=== PATIENT | female | born 1930 | race African-American/Black ===

== ENCOUNTER 2019-06-01 08:27 | Inpatient (IN) | payer MEDICARE, MEDICAID ==
[~2019-06-01] VITALS: Ht 162.6 cm; Wt 63.5 kg
[2019-06-01] MEDS ORDERED: SODIUM CHLORIDE 0.9% 1,000 ML IV ONE (09:13)
[2019-06-01 10:53] LABS: BASOPHILS % 0.6 % (0.0-2.0); EOSINOPHILS % 1.8 % (0.0-5.0); HEMATOCRIT. 36.7 % (36.0-48.0); HEMOGLOBIN. 12.5 g/dL (12.0-16.0); LYMPHOCYTES % 17.9 % (20.0-50.0); MEAN CORPUSCULAR HEMOGLOBIN 29.5 pg (28.0-32.0); MEAN CORPUSCULAR VOLUME 86.6 fL (81.0-99.0); MONOCYTES % 13.8 % (2.0-8.0); NEUTROPHILS % 65.9 % (40.0-76.0); PLATELET 371 x1000/uL (130-400); RED BLOOD CELL COUNT 4.24 mill/uL (4.2-5.4); RED CELL DISTRIBUTION WIDTH 14.6 % (11.6-14.6)
[2019-06-01 10:59] LABS: CHLORIDE 99 mEq/L (98-107)
[2019-06-01 11:01] LABS: PARTIAL THROMBOPLASTIN TIME 28.9 sec (23.4-31.0); PROTHROMBIN TIME 10.7 sec (9.6-11.0)
[2019-06-01] MEDS ORDERED: ASPIRIN 325MG EC TABLET PO ONE (11:15)
[2019-06-01] MEDS ORDERED: CEFTRIAXONE 1 G PREMIX 50 ML IV ONE (12:15)
[2019-06-01] MEDS ORDERED: ASPIRIN 300MG SUPP PR ONE (12:15)
[2019-06-01 12:46] LABS: CLARITY URINE TURBID (CLEAR); KETONES URINE 1+ (NEGATIVE); LEUKOCYTE ESTERASE URINE 2+ (NEGATIVE); NITRITE URINE POSITIVE (NEGATIVE); OCCULT BLOOD URINE 3+ (NEGATIVE); PROTEIN URINE 2+ (NEGATIVE); SPECIFIC GRAVITY URINE 1.018 (1.005-1.030)
[2019-06-01 12:56] LABS: COLOR URINE BROWN (YELLOW)
[2019-06-01] MEDS ORDERED: DEXTROSE 50% WATER 50ML SYRINGE IV PRN (15:00)
[2019-06-01] MEDS ORDERED: CLONIDINE 0.1MG TABLET PO PRN (15:00)
[2019-06-01 15:33] VITALS: BP 130/56
[2019-06-01 16:00] VITALS: BP 130/56
[2019-06-01] MEDS: APIXABAN 5 MG TABLET PO SCH ×2 (17:00→18:35)
[2019-06-01] MEDS: INSULIN LISPRO 100 UNITS/ML SUBCUT SCH ×2 (17:15→21:00)
[2019-06-01] MEDS: BLOOD SUGAR DIAGNOSTIC STRIP TEST SCH ×2 (17:33→21:07)
[2019-06-01 19:23] LABS: HEPATITIS B SURFACE ANTIGEN NEGATIVE
[2019-06-01 19:52] LABS: HEPATITIS A AB IGM NEGATIVE (NEGATIVE)
[2019-06-01 20:00] VITALS: BP 131/65
[2019-06-01] MEDS ORDERED: HALOPERIDOL LACTATE 5MG/ML VIAL IM PRN (21:10)
[2019-06-01] MEDS: FAMOTIDINE 20MG TABLET PO SCH (21:15)
[2019-06-01] MEDS ORDERED: ACETAMINOPHEN 650MG SUPP PR PRN (22:30)
[2019-06-01] MEDS ORDERED: NON FORMULARY PATIENT HOME MED XX SCH (22:30)
[2019-06-01] MEDS ORDERED: LORAZEPAM 2MG/ML CPJ IV SCH ×2 (22:30→23:45)
[2019-06-02] VITALS: BP 169/93
[2019-06-02] MEDS ORDERED: DEXT 5%/0.45% NACL KCL 20MEQ/L 1,000 ML IV SCH (01:00)
[2019-06-02] MEDS: HALOPERIDOL LACTATE 5MG/ML VIAL IM PRN ×2 (02:01→11:44)
[2019-06-02 04:00] VITALS: BP 130/85
[2019-06-02] MEDS: BLOOD SUGAR DIAGNOSTIC STRIP TEST SCH ×4 (06:51→21:53)
[2019-06-02] MEDS: INSULIN LISPRO 100 UNITS/ML SUBCUT SCH ×4 (07:01→20:47)
[2019-06-02 07:16] LABS: CHLORIDE 99 mEq/L (98-107)
[2019-06-02 07:20] LABS: BASOPHILS % 0.6 % (0.0-2.0); EOSINOPHILS % 0.2 % (0.0-5.0); HEMATOCRIT. 35.9 % (36.0-48.0); HEMOGLOBIN. 12.2 g/dL (12.0-16.0); LYMPHOCYTES % 8.9 % (20.0-50.0); MEAN CORPUSCULAR HEMOGLOBIN 29.7 pg (28.0-32.0); MEAN PLATELET VOLUME 7.7 fl (7.4-10.4); MONOCYTES % 11.3 % (2.0-8.0); PLATELET 416 x1000/uL (130-400); RED BLOOD CELL COUNT 4.12 mill/uL (4.2-5.4); RED CELL DISTRIBUTION WIDTH 14.9 % (11.6-14.6)
[2019-06-02 08:00] VITALS: BP 103/82
[2019-06-02] MEDS: APIXABAN 5 MG TABLET PO SCH (09:05)
[2019-06-02 12:00] VITALS: BP 115/99
[2019-06-02] MEDS: POTASSIUM BICARB/CIT ACID 25 MEQ TABLET.EFF PO SCH (15:55)
[2019-06-02] MEDS: SODIUM CHLORIDE 0.9% 1,000 ML IV SCH (15:55)
[2019-06-02 16:00] VITALS: BP 126/90
[2019-06-02 20:00] VITALS: BP 148/94
[2019-06-02] MEDS: FAMOTIDINE 20MG TABLET PO SCH (20:46)
[2019-06-02] MEDS: QUETIAPINE FUMARATE 25MG TABLET PO SCH (20:46)
[2019-06-03] VITALS: BP 154/80
[2019-06-03 04:00] VITALS: BP 121/65
[2019-06-03] MEDS: INSULIN LISPRO 100 UNITS/ML SUBCUT SCH ×4 (06:24→21:55)
[2019-06-03] MEDS: BLOOD SUGAR DIAGNOSTIC STRIP TEST SCH ×4 (06:25→21:14)
[2019-06-03 07:04] LABS: HEMATOCRIT. 32.4 % (36.0-48.0); HEMOGLOBIN. 10.9 g/dL (12.0-16.0); MEAN CORPUSCULAR VOLUME 86.1 fL (81.0-99.0); MEAN PLATELET VOLUME 7.4 fl (7.4-10.4); PLATELET 409 x1000/uL (130-400); RED BLOOD CELL COUNT 3.76 mill/uL (4.2-5.4); RED CELL DISTRIBUTION WIDTH 14.7 % (11.6-14.6)
[2019-06-03 07:10] LABS: CHLORIDE 105 mEq/L (98-107)
[2019-06-03 08:00] VITALS: BP_SYST 113; BP_SYST 116; BP_DIAS 66; BP_DIAS 67
[2019-06-03] MEDS: POTASSIUM BICARB/CIT ACID 25 MEQ TABLET.EFF PO SCH (08:26)
[2019-06-03] MEDS: QUETIAPINE FUMARATE 25MG TABLET PO SCH ×2 (08:26→21:54)
[2019-06-03] MEDS: SODIUM CHLORIDE 0.9% 1,000 ML IV SCH (08:27)
[2019-06-03 11:57] LABS: PLATELET ESTIMATE SLIGHTLY INCREASED
[2019-06-03] MEDS ORDERED: POTASSIUM CHLORIDE 20MEQ TABLET SR PO NR (13:45)
[2019-06-03] MEDS ORDERED: DEXTROSE 50% WATER 50ML SYRINGE IV PRN (14:00)
[2019-06-03] MEDS: FLUCONAZOLE 100MG TABLET PO SCH (14:48)
[2019-06-03 16:00] VITALS: BP 119/67
[2019-06-03] MEDS: AMOXICILLIN 250MG CAPSULE PO SCH ×2 (16:21→21:54)
[2019-06-03] MEDS: METFORMIN HCL 500MG TABLET PO SCH (16:21)
[2019-06-03] MEDS ORDERED: INSNPH SUBCUT (16:25)
[2019-06-03] MEDS ORDERED: METF-414 PO (16:25)
[2019-06-03] MEDS ORDERED: ACET-2081 PO (16:25)
[2019-06-03] MEDS ORDERED: GLIP5TAB12 PO (16:25)
[2019-06-03] MEDS ORDERED: ALEN70TA3 PO (16:25)
[2019-06-03] MEDS ORDERED: NAPH1POW3 PO (16:25)
[2019-06-03 20:00] VITALS: BP 134/65
[2019-06-03] MEDS: FAMOTIDINE 20MG TABLET PO SCH (21:54)
[2019-06-04] VITALS: BP 111/65
[2019-06-04 04:00] VITALS: BP 116/60
[2019-06-04] MEDS: BLOOD SUGAR DIAGNOSTIC STRIP TEST SCH ×4 (05:57→21:00)
[2019-06-04] MEDS: AMOXICILLIN 250MG CAPSULE PO SCH ×3 (05:57→22:21)
[2019-06-04] MEDS: METFORMIN HCL 500MG TABLET PO SCH ×2 (05:57→17:41)
[2019-06-04] MEDS: INSULIN LISPRO 100 UNITS/ML SUBCUT SCH ×4 (05:58→22:23)
[2019-06-04 08:00] VITALS: BP 110/59
[2019-06-04 08:07] LABS: CHLORIDE 108 mEq/L (98-107)
[2019-06-04] MEDS: POTASSIUM BICARB/CIT ACID 25 MEQ TABLET.EFF PO SCH (08:56)
[2019-06-04] MEDS: QUETIAPINE FUMARATE 25MG TABLET PO SCH ×2 (08:57→22:21)
[2019-06-04] MEDS: FLUCONAZOLE 100MG TABLET PO SCH (08:57)
[2019-06-04 12:00] VITALS: BP 99/54
[2019-06-04 16:00] VITALS: BP 127/62
[2019-06-04 20:00] VITALS: BP_SYST 100; BP_SYST 112; BP_DIAS 63; BP_DIAS 65
[2019-06-04] MEDS: FAMOTIDINE 20MG TABLET PO SCH (22:21)
[2019-06-05] VITALS: BP 115/70
[2019-06-05 04:00] VITALS: BP 136/67
[2019-06-05] MEDS: BLOOD SUGAR DIAGNOSTIC STRIP TEST SCH ×2 (06:36→12:12)
[2019-06-05] MEDS: INSULIN LISPRO 100 UNITS/ML SUBCUT SCH ×2 (06:36→12:39)
[2019-06-05] MEDS: AMOXICILLIN 250MG CAPSULE PO SCH ×2 (06:36→14:00)
[2019-06-05] MEDS: METFORMIN HCL 500MG TABLET PO SCH (06:38)
[2019-06-05 08:00] VITALS: BP 131/60
[2019-06-05] MEDS: POTASSIUM BICARB/CIT ACID 25 MEQ TABLET.EFF PO SCH (09:09)
[2019-06-05] MEDS: FLUCONAZOLE 100MG TABLET PO SCH (09:09)
[2019-06-05] MEDS: QUETIAPINE FUMARATE 25MG TABLET PO SCH (09:10)
[2019-06-05 11:56] VITALS: BP 131/60
[2019-06-05 12:00] VITALS: BP 122/58
== END 2019-06-05 14:30 | DRG 758 ==
LOC: ER 08:27 → 5WST 11:53 → EDBEDREQ 12:01 → EDBEDREQTM 12:02 → ENRESERV 13:35
PROVIDERS: ADMIT Internal Medicine Critical Care Medicine; ATTEND Internal Medicine Critical Care Medicine
DX: B37.49 Other urogenital candidiasis (principal); B19.9 Unspecified viral hepatitis without hepatic coma; E44.0 Moderate protein-calorie malnutrition; E11.22 Type 2 diabetes mellitus with diabetic chronic kidney disease; F03.90 Unspecified dementia, unspecified severity, without behavioral disturbance, psychotic disturbance, mood disturbance, and anxiety; I25.10 Atherosclerotic heart disease of native coronary artery without angina pectoris; I12.9 Hypertensive chronic kidney disease with stage 1 through stage 4 chronic kidney disease, or unspecified chronic kidney disease; M81.0 Age-related osteoporosis without current pathological fracture; N18.9 Chronic kidney disease, unspecified; R31.0 Gross hematuria; E78.00 Pure hypercholesterolemia, unspecified; E11.36 Type 2 diabetes mellitus with diabetic cataract; M19.90 Unspecified osteoarthritis, unspecified site; R13.10 Dysphagia, unspecified; Z96.1 Presence of intraocular lens; E78.5 Hyperlipidemia, unspecified; W01.0XXA Fall on same level from slipping, tripping and stumbling without subsequent striking against object, initial encounter; I69.320 Aphasia following cerebral infarction; Z86.718 Personal history of other venous thrombosis and embolism; Z78.1 Physical restraint status; Y93.89 Activity, other specified; Y92.89 Other specified places as the place of occurrence of the external cause; Y99.8 Other external cause status; Z79.01 Long term (current) use of anticoagulants; Z79.4 Long term (current) use of insulin; Z98.42 Cataract extraction status, left eye; Z98.41 Cataract extraction status, right eye
CPT/HCPCS: 36415; 71045; 76700; 80048; 80076; 81003; 82962; 83036; 83880; 84484; 86705; 86709; 86803; 87077; 87186; 87340; 93005; 96365; 99285; J0696; J1630; J1815; J2060; J7030